=== PATIENT | male | born 1985 | race Caucasian/White ===

== ENCOUNTER 2019-02-19 12:26 | Emergency (ER) | payer SELFPAY ==
[2019-02-19 12:32] VITALS: BP 140/92; PULSE 81; RESP 16; TEMP 36.5; O2SAT 98
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
--- NOTE | 2019-02-19 12:55 | DI.CT_ITS ---
SYMPTOMS/DIAGNOSIS: TRAUMA, NECK PAIN, UPPER THORACIC SPINE PAIN AND TENDERNESS CT SCAN OF THE CERVICAL SPINE: Multiple contiguous axial images of the cervical spine were obtained. Sagittal and coronal reformatted images were evaluated on the Siemens workstation. No acute fractures or subluxations are seen. There is normal alignment of the cervical spine. The soft tissues are unremarkable. IMPRESSION: No acute fractures or subluxations in the cervical spine. CT SCAN OF THE THORACIC SPINE: Multiple contiguous axial images of the thoracic spine were obtained. Sagittal and coronal reformatted images were evaluated on the Siemens workstation. There is normal alignment of the thoracic spine. No acute fractures or subluxations are present. The soft tissues are unremarkable. No central spinal canal stenosis is present. The visualized lungs are clear. IMPRESSION: No acute fracture or subluxation in the thoracic spine. The findings were discussed with the emergency department on the date of the examination.
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
--- NOTE | 2019-02-20 09:09 | NUR.NOTE ---
Nursing Note: Orthopedics will send follow up referral to his PCP so that they can then refer patient to a spine surgeon. Sandra Mccann.
== END 2019-02-19 14:34 | disposition home or self-care (01) ==
PROVIDERS: Emergency Provider Student in an Organized Health Care Education/Training Program
DX: M54.5 Low back pain (principal); M54.6 Pain in thoracic spine; V86.05XA Driver of 3- or 4- wheeled all-terrain vehicle (ATV) injured in traffic accident, initial encounter
CPT/HCPCS: 99284; L0172; 72125; 72128

== ENCOUNTER 2019-08-01 14:18 | Emergency (ER) | payer SELFPAY ==
[2019-08-01 14:24] VITALS: BP 124/79; PULSE 78; RESP 16; TEMP 36.2; O2SAT 99
--- NOTE | 2019-08-01 15:00 | ED.GENADUL_ITS ---
Discharge Plan Disposition Patient Disposition: HOME Condition: Good Discharge Details Chief Complaint: EarProblem Clinical Impression: URI (upper respiratory infection), Conjunctivitis, Perforation of ear drum Primary Care Provider: None,None ED Provider: Jessie Frost Home Meds and New Rx's Prescriptions: New amoxicillin 500 mg capsule 500 mg PO TID Qty: 30 RF: 0 ofloxacin [Ocuflox] 0.3 % drops See Rx Instructions .ROUTE .COMPLEX Qty: 10 RF: 0 ofloxacin 0.3 % drops 10 drp OT BID 14 Days RF: 0 No Action acetaminophen [Tylenol] 325 mg Capsule 325 mg PO PRN PRNRF: 0 ibuprofen 200 mg Tablet 600 mg PO Q6H PRNRF: 0 Discharge Instructions Instructions: Ruptured Eardrum (ED), Upper Respiratory Infection (ED), Conjunctivitis (ED) Additional Instructions: Do not use contacts for at least 1 week. For any persistent discomfort or drainage from the eyes have reevaluation with personnel director prior to using contacts. Specifically follow-up with [facility] for any persisting complaints . Use antibiotic as prescribed by mouth. Use antibody drops prescribed in the eyes as well as in the ears as discussed. Avoid getting water into your ear. Use Tylenol for any soreness if needed. Follow-up with Dr. Hampton of your ear nose and throat for reevaluation of your ear as discussed. Call for soonest appointment Return for any worsening symptoms, concerning symptoms, or for persistence or lack of improvement as expected in the next few days. Stand Alone Forms: Work Release Referrals: Eric Hampton DO [OSTEOPATHIC DOCTOR] - Medical Decision Making Is a 34-year-old gentleman who presents for multiple complaints specifically 4 days of illness associated with nasal congestion and sore throat and onset of left ear pain. Patient reports sore throat has improved. Denies abdominal pain, nausea or vomiting associated. Patient does complain of decreased left hearing, purulent drainage from the left eardrum as well as bilateral conjunctival drainage. Crusting on the eyelids in the morning causing difficulty opening eyes when first waking. No vision change or associated pain in the eyes. Patient is a contact lens wearing to sleep in his contacts occasionally. Has not had his contacts in for the last 2 days. Patient is a smoker. Does have a cough with intermittent production but no significant chest pain or difficulty breathing. Denies wheezing at this time. Patient concerned primarily with a left ear drainage associated with hearing change and drainage from the eyes bilaterally. On exam patient has notable drainage in the left ear canal with identifiable bubbles and possible TM perforation at approximately 8:00. No significant pain with tragal tug. Patient does minimal pharyngeal erythema no significant associated posterior cervical lymphadenopathy. Patient does have crusting on bilateral eyelids consistent with conjunctivitis with mild injection. No fluorescein stain uptake consistent with corneal ulcer at this time. Offered patient antibiotic treatment with amoxicillin as well as topical treatment for both eye and ear. Patient encouraged to follow-up with administrative hearing officer locally for follow-up of possible perforated eardrum. Patient reports understanding with plan of care. Encourage follow-up with [facility] for possible contact to arrival irritation if any persistent irritation occurs lasting greater than 2 to 3 days after antibiotic treatment. Patient again reports his understanding with plan of care. The patient was stable and requested discharge. Prior to discharge, my usual and customary return precautions were reviewed with the patient - this included follow-up instructions and reasons to return to the Emergency Department if conditions worsens, does not improve as expected, or other new concerns arise. HPI General Date/Time Provider Initiated Documentation: 08/01/19 14:22 . HPI Narrative: Is a 34-year-old patient who presents for complaints of 4 days of nasal congestion with sore throat. Sore throat is improved. Patient denies voice change or trismus. Patient does report persistent nasal congestion, left-sided ear pain now associated with drainage and pus coming from his left ear. Patient reports decreased hearing from the left ear. Patient also complaining of bilateral conjunctival drainage, crusting in the morning for the last 2 days. Has stopped using his contacts. Patient does admit to inappropriate contact you specifically sleeping in his contacts for several days in a row. Patient denies significant eye discomfort. He reported initially some irritation to his left eye then soon thereafter his right eye. Associated with crusting and eyes being crusted shut in the morning. Has improved somewhat in the last 24 hours. Patient denies any associated vision change. Blurred vision associated with drainage but when cleared away the vision returns to normal. No associated spots or floaters. Patient denies fever, chills, nausea, vomiting. No bowel changes. No abdominal pain. Cough with no associated difficulty breathing shortness of breath or wheezing. Patient is a smoker. Related Data Home Medications Medication Instructions Recorded Confirmed acetaminophen [Tylenol] 325 mg PO PRN PRN 02/19/19 08/01/19 amoxicillin 500 mg PO TID #30 cap 08/01/19 ibuprofen 600 mg PO Q6H PRN 08/01/19 08/01/19 ofloxacin 10 drp OT BID 14 Days ml 08/01/19 ofloxacin [Ocuflox] See Rx Instructions .ROUTE 08/01/19 .COMPLEX #10 ml Previous Rx's Medication Instructions Recorded amoxicillin 500 mg PO TID #30 cap 08/01/19 ofloxacin 10 drp OT BID 14 Days ml 08/01/19 ofloxacin [Ocuflox] See Rx Instructions .ROUTE 08/01/19 .COMPLEX #10 ml Allergies Allergy/AdvReac Type Severity Reaction Status Date / Time No Known Allergies Allergy Unverified 08/01/19 14:33 General Stated Complaint: EarProblem ALEX: 4 Review of Systems All systems reviewed & are unremarkable except as noted in HPI and below Constitutional Constitutional: Denies chills and Denies fever(s) Eyes Eyes: Denies diplopia, Reports eye discharge, Reports irritation, Denies loss of vision, Denies other visual disturbances and Denies eye pain ENT Ears, Nose, Mouth, and Throat: Reports ear discharge, Reports otalgia, Denies sinus pain, Denies sinus pressure, Reports sore throat and Denies throat swelling Cardiovascular Cardiovascular: Denies dyspnea on exertion Respiratory Respiratory: Reports cough, Denies pain with cough and Denies dyspnea on exertion Gastrointestinal Gastrointestinal: Denies abdominal pain, Denies diarrhea, Denies nausea and D enies vomiting Neurologic Neurologic: Denies loss of vision Allergic/Immunologic Allergic/Immunologic: Denies throat swelling PENDING SALE TO [facility] Social History Smoking/Tobacco Use Status: Current every day Tobacco Type: cigarettes Alcohol Intake: never Substance use type: does not use Do you feel safe at home: Yes Do you feel safe in your relationship?: Yes Exam Narrative Exam Narrative: CONST: Healthy appearing patient, in no acute distress. Well hydrated. Alert and alert. HENMT: Head nomocephalic, normal to inspection. Atraumatic. Hearing grossly normal. External ear canal with purulent drainage multiple air-fluid levels consistent with bubbles and possible 8-9 o'clock TM perforation of the left eardrum. Right TM intact. Nose normal to inspection. No rhinnorhea. Normal facial exam. Oral mucosa normal. Tounge normal. Dentition normal. Mild pharyngeal erythema. Uvula midline. EYES: General normal appearance. Alignment normal. Eyelids normal crusting noted on the eyelids. Conjunctiva mildly injected bilaterally. Sclera normal. PERRL. No fluorescein dye uptake bilaterally. Vision 20/20 bilaterally NECK: Normal visual inspection. FROM. No lymphadenopathy. Trachea midline. No Midline tenderness. CHEST: Normal insepection of the chest. RESP: Normal respiratory effort. Speaking full sentences. No cough. No wheezing. No retractions. Clear to auscaltation. Breath sound equal and present bilaterally. Course Vital Signs Vital signs: Vital Signs Temperature 36.2 C L 08/01/19 14:24 Pulse 78 08/01/19 14:24 Respiratory Rate 16 08/01/19 14:24 Blood Pressure 124/79 08/01/19 14:24 Pulse Oximetry 99 08/01/19 14:24 Temperature 36.2 C L 08/01/19 14:24 Temperature Source Temporal Artery Scan 08/01/19 14:24 Pulse 78 08/01/19 14:24 Respiratory Rate 16 08/01/19 14:24 Respiratory Effort 08/01/19 14:32 Blood Pressure 124/79 08/01/19 14:24 Blood Pressure Position Sitting 08/01/19 14:24 Pulse Oximetry 99 08/01/19 14:24 Oxygen Delivery Method Room Air 08/01/19 14:24 Oxygen Flow Rate 0 08/01/19 14:24 Pain Level 5 08/01/19 14:24
[2019-08-01] MEDS: Tetracaine 0.5% 4 ML BTL (15:15)
[2019-08-01] MEDS: Fluorescein STRIPS 100/BOX 1 MG (15:15)
--- NOTE | 2019-08-01 15:29 | NUR.NOTE ---
Nursing Note: Referral for follow up [facility]. Sandra Mccann.
== END 2019-08-01 15:12 | disposition home or self-care (01) ==
LOC: ER 15:36
PROVIDERS: Emergency Provider Physician Assistant
DX: J06.9 Acute upper respiratory infection, unspecified (principal); H10.33 Unspecified acute conjunctivitis, bilateral; R05 Cough; H66.012 Acute suppurative otitis media with spontaneous rupture of ear drum, left ear; F17.210 Nicotine dependence, cigarettes, uncomplicated
CPT/HCPCS: 99283

== ENCOUNTER 2021-11-09 23:21 | Emergency (ER) | payer SELFPAY ==
[2021-11-09 23:27] VITALS: BP 133/84; PULSE 78; RESP 16; TEMP 36.1; O2SAT 98
--- NOTE | 2021-11-09 23:30 | DI.RAD_ITS ---
Exam(s) XR CHEST 2V PA LATERAL EXAM: XR CHEST 2V PA LATERAL CLINICAL HISTORY: fall left sided chest pain TECHNIQUE: 2D digital imaging was performed of the chest. Two images were obtained. PA and lateral views were obtained. COMPARISON: CR CHEST 2 VIEWS PA,LAT from 11/25/2017 FINDINGS: MEDIASTINUM: Normal. HEART: Normal. PULMONARY VASCULATURE: Normal. LUNGS: Clear. PLEURAL SPACE: No pleural effusion or pneumothorax. BONE:Within normal limits for the patient's age. OTHER FINDINGS:Normal. IMPRESSION: No acute pulmonary findings. DATA REPOSITORY: RADIATION DOSE DELIVERED:
--- NOTE | 2021-11-09 23:41 | ED.GENADUL_ITS ---
Discharge Plan Disposition Patient Disposition: HOME Condition: Stable Discharge Details Clinical Impression: Contusion of rib Primary Care Provider: Unknown,Unknown ED Provider: Marck Shepherd Home Meds and New Rx's Prescriptions: Continued acetaminophen [Tylenol] 325 mg Capsule 325 mg PO PRN PRN0RF ibuprofen 600 mg Tablet 600 mg PO PRN PRN (Reason: Pain) 0RF Discharge Instructions Instructions: Rib Contusion (ED) Additional Instructions: your xray did not show any broken bones you can take 1000mg tylenol and 600mg ibuprofen every 6 hours for pain as needed if not better by next week follow up with your primary care provider return to the emergency department if you feel more ill, have severe worsening pain or fevers. Stand Alone Forms: Work Release Medical Decision Making 36 yo male with no chronic medical problems comes in with left sided chest pain s/p fall. He states Tuesday he slipped on ice at his house and fell from standing landing on his left side. Denies hitting his head or loc. Came in tonight for continues left sided chest pain. he denies headache, neck pain, arm or leg pain, abdominal pain or back pain and no fevers, chills, or dyspnea. He arrives localizing the pain to the left lateral chest in the lateral clavicular line over the 4th rib. No other pain elsewhere, no sternum pain, no C/T/L spine tenderness, no signs of trauma to the head, caox4, clear lungs, no murmurs or distant heart sounds. Suspect this is a rib contusion but will xray to further evaluate for fracture and less likely ptx pt's xray unremarkable and remains stable. Bedside u/s shows no pericardial effusion, normal EF, and normal lung sliding bilaterally. Suspect rib contusion, advised prn tylenol and ibuprofen, follow up with pcp if not better in a week and return precautions given Differential Diagnosis Differential Diagnosis: ptx, rib fracture, rib contusion Imaging Data Radiologic Study: Attestation: I personally reviewed and interpreted this imaging study as follows: Imaging: X-Ray Radiologist's impression: no acute findings HPI General Mode of arrival: ambulatory . Date/Time Provider Initiated Documentation: 11/09/21 23:34 . Limitations to Documentation: no limitations . Information obtained by: patient . History of Present Illness 36 year old M presents to the emergency department with the chief complaint of left sided chest pain s/p fall 2 days ago, described as moderate, Quality is described as aching, and is localized to the chest. Patient reports no radiation. Patient started experiencing this day(s) (2) and it has been constant. improves with No relieving factors improve symptom(s), No exacerbating factors reported . Patient notes no other symptoms.. Patient did receive the following treatments prior to arrival, none Related Data Home Medications Medication Instructions Recorded Confirmed acetaminophen 325 mg capsule 325 mg PO PRN PRN 02/19/19 07/24/20 (Tylenol) ibuprofen 600 mg tablet 600 mg PO PRN PRN 11/09/21 11/09/21 Allergies Allergy/AdvReac Type Severity Reaction Status Date / Time No Known Allergies Allergy Unverified 11/09/21 23:28 General Stated Complaint: Chest/Rib ALEX: 4 Review of Systems All systems reviewed & are unremarkable except as noted in HPI and below Constitutional Constitutional: Denies chills, Denies fever(s) and Denies weakness Eyes Eyes: Denies loss of vision ENT Ears, Nose, Mouth, and Throat: Denies change in voice Cardiovascular Cardiovascular: Denies dyspnea Respiratory Respiratory: Denies cough and Denies dyspnea Gastrointestinal Gastrointestinal: Denies abdominal pain, Denies nausea and Denies vomiting Genitourinary Genitourinary: Denies dysuria Musculoskeletal Musculoskeletal: Denies joint swelling Integumentary/Breasts Skin/Breast: Denies rash Neurologic Neurologic: Denies loss of vision and Denies weakness Allergic/Immunologic Allergic/Immunologic: Denies urticaria PFSH All Active Problems (Updated 11/10/21 @ 00:37 by Marck Shepherd MD) Contusion of rib (Acute) Shoulder pain, left (Acute) Family History (Updated 08/18/20 @ 14:29 by Lorin Myles) Mother No problems noted. Father No problems noted. Sister No problems noted. Maternal Grandfather No problems noted. Paternal Grandfather , 40's Cancer Maternal Grandmother No problems noted. Paternal Grandmother No problems noted. Social History (Updated 08/18/20 @ 14:27 by Lorin Myles) Smoking/Tobacco Use Status: Current every day Tobacco Type: cigarettes Quit status: considering quitting Second Hand Exposure: Yes Smoking risk assessment performed?: Yes Alcohol Intake: current Alcohol Intake frequency: 3 or more drinks per day Alcohol type: beer and hard liquor Drug use: Occasionally Substance use type: marijuana Caregiver/Support person: No Household members: none Housing: house Communication Needs: None Pets and animals: Yes Pets and animals: dog(s) Sexually active: Yes Do you think of yourself as: straight/heterosexual Current gender identity: male What is your relationship status?: never How often do you talk on the phone with friends or family?: once per week How often do you get together with friends or relatives?: once per week Do you belong to any clubs or organized social groups?: yes Panel score (0-1 are the most socially isolated patients): 1 What type of physical activity do you participate in: none Almita/Mandaen: none Special almita needs: No Seatbelt use: sometimes Helmet use: Yes Helmet use: always 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 Do you feel safe at home: Yes Do you feel safe in your relationship?: Yes Victim of physical abuse: No Victim of emotional abuse: No Victim of sexual abuse: No Would you like helpful sources: No Exam Const General: no acute distress Orientation: alert HENMT Head: normal to inspection Ears: external ears normal General nose exam: external nose normal Mouth: moist mucous membranes Eyes General: appearance normal, both eyes and all related structures Neck Neck: normal visual inspection Chest Chest: tenderness Resp Effort & Inspection: normal respiratory effort and able to speak in complete sentences Cardio Rate: regular rate Skin General skin exam: no rashes or lesions noted Neuro General: patient alert and patient oriented x3 Extrem General: normal to inspection Psych Mental Status: mental status grossly normal Course Vital Signs Vital signs: Vital Signs Temperature 36.1 C L 11/09/21 23:27 Pulse 78 11/09/21 23:27 Respiratory Rate 16 11/09/21 23:27 Blood Pressure 133/84 11/09/21 23:27 Pulse Oximetry 98 11/09/21 23:27 Temperature 36.1 C L 11/09/21 23:27 Temperature Source Skin 11/09/21 23:27 Pulse 78 11/09/21 23:27 Respiratory Rate 16 11/09/21 23:27 Respiratory Effort Non-Labored 11/09/21 23:31 Respiratory Depth Normal 11/09/21 23:31 Respiratory Pattern Normal 11/09/21 23:31 Blood Pressure 133/84 11/09/21 23:27 Pulse Oximetry 98 11/09/21 23:27 Pain Level 7 11/09/21 23:31 PAWSS Have you Been Recently Intoxicated or Drunk Within the Last 30 days?: No Have you Ever Experienced Previous Episodes of Alcohol Withdrawal?: No Have you ever Experienced Withdrawal Seizures?: No Have you ever Experienced Delirium Tremens(DT)s?: No Have you ever undergone Alcohol Rehabilitation Treatment (i.e, inpt ot outpatient treatment programs)?: No Have you ever Experienced Blackouts?: No Have you ever Combined Alcohol with other Downers within the last 90 days?: No Have you ever Combined Alcohol with any other Substance of Abuse during the last 90 days?: No Positive Blood Alcohol level on Presentation? [PCS.BAL]: No Evidence of Increased Autonomic Activity (i.e. HR>120, tremor, sweating, agitation, nausea)?: No Result: 0
--- NOTE | 2021-11-10 00:22 | DI.VRAD_ITS ---
PROCEDURE INFORMATION: Exam: XR Chest Exam date and time: 11/09/2021 11:41 PM Age: 36 years old Clinical indication: Pain and injury or trauma; Blunt trauma (contusions or hematomas); Left-sided; Injury date: 11/08/21; Injury details: Fall, left sided chest pain TECHNIQUE: Imaging protocol: XR of the chest. Views: 2 views. COMPARISON: CR CHEST 2 VIEWS PA,LAT 11/25/2017 9:38 AM FINDINGS: Lungs: Unremarkable. No consolidation. Pleural spaces: Unremarkable. No pleural effusion. No pneumothorax. Heart/Mediastinum: Unremarkable. No cardiomegaly. Bones/joints: Ribs and clavicles appear intact. Soft tissues: Negative for chest wall air. IMPRESSION: No acute cardiopulmonary abnormality. Dictated and Authenticated by: Marck Esteves MD. Ordering:OSIRIS Acharya MD
[2021-11-10] MEDS: Lidocaine 5% Patch 1 PATCH TP (00:38)
[2021-11-10 00:40] VITALS: BP 122/85; PULSE 75; RESP 16; O2SAT 96
== END 2021-11-10 00:45 | disposition home or self-care (01) ==
PROVIDERS: Emergency Provider Emergency Medicine
DX: S20.212A Contusion of left front wall of thorax, initial encounter (principal); W00.0XXA Fall on same level due to ice and snow, initial encounter
CPT/HCPCS: 96372; 99284; 71046; 99283

== ENCOUNTER 2023-06-10 06:04 | Emergency (ER) | payer SELFPAY ==
[2023-06-10 06:09] VITALS: BP 151/83; PULSE 89; RESP 18; TEMP 36.8; O2SAT 99
--- NOTE | 2023-06-10 06:16 | ED.GENADUL_ITS ---
Discharge Plan Disposition Patient Disposition: Home Condition: Good Discharge Details Clinical Impression: Acute left otitis media Primary Care Provider: Unknown,Unknown ED Provider: Sharad Prakash Home Meds and New Rx's Prescriptions: New amoxicillin-pot clavulanate 875-125 mg tablet 1 tab PO BID Qty: 20 0RF No Action acetaminophen [Tylenol] 325 mg Capsule 325 mg PO PRN PRN ibuprofen 600 mg Tablet 600 mg PO PRN PRN (Reason: Pain) Discharge Instructions Instructions: Ear Infection (ED) Additional Instructions: At this time you have a left-sided ear infection. Please take the antibiotic as directed. It has been sent to your pharmacy on file. Please take 600 to 800 mg of ibuprofen every 6 hours as needed for pain. If you notice any worsening of your symptoms, or any new symptoms such as vomiting, diarrhea, fever, chills, shortness of breath, chest pain, numbness, weakness, or fainting , please return immediately to the emergency department for reevaluation. Please follow up with your primary care provider as soon as possible for reassessment and reevaluation. As always, it was a pleasure participating in your medical care today. Medical Decision Making This is a very pleasant 38-year-old male who presents today for evaluation of left ear pain. Patient states that about a week to a week and a half ago he had runny nose congestion and mild cough, then over the last 2 days that is those other symptoms have been improving and transition to left-sided ear pain. He denies any discharge. He has been taking Tylenol for pain. He does admit to muffled hearing in his left ear because of the symptoms. No other complaints at this time. No other modifying factors. Exam demonstrates clear lungs, normal right tympanic membrane. Left tympanic membrane demonstrates otitis media with effusion. No rupture. Will give Augmentin, and Motrin. Will give prescription for home as well. Discussed red flags for which to return. Diagnosis left-sided otitis media. I have extensively reviewed the treatment plan and discharge instructions with the patient. I have addressed all patient concerns at this time. The patient was made aware of what symptoms to monitor for that would warrant a return to the emergency department. Discussed the plan with the patient, they demonstrate verbal understanding and agreement with our assessment and plan at this time. The documentation in this chart was dictated using [employer] dictation software. Please excuse any dictation errors. HPI General Date/Time Provider Initiated Documentation: 06/10/23 06:15 . HPI Narrative: This is a very pleasant 38-year-old male who presents today for evaluation of left ear pain. Patient states that about a week to a week and a half ago he had runny nose congestion and mild cough, then over the last 2 days that is those other symptoms have been improving and transition to left-sided ear pain. He denies any discharge. He has been taking Tylenol for pain. He does admit to muffled hearing in his left ear because of the symptoms. No other complaints at this time. No other modifying factors. Related Data Home Medications Medication Instructions Recorded Confirmed acetaminophen 325 mg capsule 325 mg PO PRN PRN 02/19/19 07/24/20 (Tylenol) ibuprofen 600 mg tablet 600 mg PO PRN PRN Pain 11/09/21 11/09/21 amoxicillin 875 mg-potassium 1 tab PO BID #20 tabs 06/10/23 clavulanate 125 mg tablet Previous Rx's Medication Instructions Recorded amoxicillin 875 mg-potassium 1 tab PO BID #20 tabs 06/10/23 clavulanate 125 mg tablet Allergies Allergy/AdvReac Type Severity Reaction Status Date / Time No Known Allergies Allergy Unverified 11/09/21 23:28 General Stated Complaint: EarProblem ALEX: 4 Review of Systems All systems reviewed & are unremarkable except as noted in HPI and below PFSH All Active Problems Acute left otitis media (Acute) Shoulder pain, left (Acute) Family History Mother No problems noted. Father No problems noted. Sister No problems noted. Maternal Grandfather No problems noted. Paternal Grandfather , 40's Cancer Maternal Grandmother No problems noted. Paternal Grandmother No problems noted. Social History Smoking/Tobacco Use Status: Current every day Tobacco Type: cigarettes Quit status: considering quitting Second Hand Exposure: Yes Smoking risk assessment performed?: Yes Alcohol Intake: current Alcohol Intake frequency: 3 or more drinks per day Alcohol type: beer and hard liquor Drug use: Occasionally Substance use type: marijuana Caregiver/Support person: No Household members: none Housing: house Communication Needs: None Pets and animals: Yes Pets and animals: dog(s) Sexually active: Yes Do you think of yourself as: straight/heterosexual Current gender identity: male What is your relationship status?: never How often do you talk on the phone with friends or family?: once per week How often do you get together with friends or relatives?: once per week Do you belong to any clubs or organized social groups?: yes Panel score (0-1 are the most socially isolated patients): 1 What type of physical activity do you participate in: none Almita/Catholic: none Special almita needs: No Seatbelt use: sometimes Helmet use: Yes Helmet use: always 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 3.ENT: Atraumatic external nose and ears. Moist MM. Neck: Symmetric, trachea midline, No thyromegaly. Left tympanic membrane is erythematous, bulging, with purulence behind it. No evidence of rupture. 4.CVS: +S1/S2, No murmurs or gallops. Peripheral pulses 2+ and equal in all extremities. Brisk capillary refill in all extremities. 5.RESP: Unlabored respiratory effort. Clear to auscultation bilaterally. No wheezes rales or rhonchi 6.GI: Soft, Nontender/Nondistended, No hepatosplenomegaly. No guarding or rebound. 7.MSK: Normocephalic/Atraumatic, Extremities w/o deformity or ttp No cyanosis or clubbing, Normal movement of all extremities 8.Skin: Warm, Dry. No rashes or lesions. 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 Sensation grossly intact, no focal neurologic deficits. 10.Psych: (AAO) x3. Appropriate mood and affect Course Vital Signs Vital signs: Vital Signs Temperature 36.8 C 06/10/23 06:09 Pulse 89 09/29/23 06:09 Respiratory Rate 18 06/10/23 06:09 Blood Pressure 151/83 H 06/10/23 06:09 Pulse Oximetry 99 06/10/23 06:09 Temperature 36.8 C 06/10/23 06:09 Pulse 89 06/10/23 06:09 Respiratory Rate 18 06/10/23 06:09 Blood Pressure 151/83 H 06/10/23 06:09 Blood Pressure Position Sitting 06/10/23 06:09 Pulse Oximetry 99 06/10/23 06:09 Oxygen Delivery Method Room Air 06/10/23 06:09 Oxygen Flow Rate 0 06/10/23 06:09 Pain Level 5 06/10/23 06:09
[2023-06-10] MEDS: Amox. 875/Clav. 125, 2 TABS/BTL 1 TAB PO (06:23)
[2023-06-10] MEDS: Ibuprofen 800 MG TAB PO (06:23)
[2023-06-10 06:24] VITALS: RESP 18
== END 2023-06-10 06:24 | disposition home or self-care (01) ==
LOC: ER 06:37
PROVIDERS: Emergency Provider Student in an Organized Health Care Education/Training Program
DX: H66.92 Otitis media, unspecified, left ear (principal)
CPT/HCPCS: 99283; 99284

== ENCOUNTER 2025-06-05 17:18 | Outpatient (REF) | payer BC, SELFPAY ==
[2025-06-07 11:40] LABS: Chlamydia Result Negative (Negative); GC Result Negative (Negative)
== END 2025-06-05 17:19 | disposition home or self-care (01) ==
LOC: LBN 17:18
PROVIDERS: PCP Nurse Practitioner Family; Visit Provider Nurse Practitioner Family
DX: A64 Unspecified sexually transmitted disease (principal)
CPT/HCPCS: 87491; 87591

== ENCOUNTER 2025-07-04 16:06 | Outpatient (REF) | payer OTHER, SELFPAY ==
[2025-07-04 20:45] LABS: Glucose Negative (Negative)
[2025-07-04 20:59] LABS: C & S Indicated? Yes
== END 2025-07-04 16:07 | disposition home or self-care (01) ==
LOC: LBN 16:06
PROVIDERS: PCP Nurse Practitioner Family; Visit Provider Nurse Practitioner Family
DX: I89.0 Lymphedema, not elsewhere classified (principal)
CPT/HCPCS: 81003; 81015; 87086